=== PATIENT | female | born 1985 | race Caucasian/White ===

== ENCOUNTER 2024-03-14 00:42 | Emergency (ER) | payer OTHER, SELFPAY ==
[2024-03-14 00:42] VITALS: BMI 43.5
[2024-03-14 00:43] VITALS: BP 119/82
[2024-03-14 01:09] LABS: Urine Albumin Negative (Neg - Trace); Urine Bilirubin Negative (Negative); Urine Character Clear (Clear); Urine Color Yellow; Urine Glucose Negative (Negative); Urine Ketone Negative (Negative); Urine Leukocyte Negative (Negative); Urine Nitrite Negative (Negative); Urine Occult Blood 1+ (Negative); Urine Urobilinogen Negative (Neg - 1+)
[2024-03-14 01:27] LABS: HCG, Urine Qualitative Screen Negative
--- NOTE | 2024-03-14 01:32 | ED.GENMED ---
History of Present Illness
General
Chief Complaint: Urinary Symptoms
Source: patient
Exam Limitations: none
Time Seen by Provider: 03/14/24 01:09
Nursing documentation reviewed up to this point in time: agreed with
Travel History
Have you had any contact with someone who has COVID-19?: No
Do you have any symptoms of coronavirus? Fever > 100 degrees, chills, cough, shortness of breath, sore throat, loss of taste or smell, muscle aches, or headache?: No
History of Present Illness
History of Present Illness:
38-year-old female presents emergency department complaining of left flank pain for the past 2 days. No aggravating relieving factors. No dysuria or frequency.
Past History
Past History
ED Past Medical History: None
ED Past Surgical History: None
Social History
Tobacco: Non-smoker
Alcohol: None
Drug: None
Review of Systems
Review of Systems
Allergies reviewed?: Yes
All Other Systems: Not applicable
Constitutional: Reports no symptoms
EENT: Reports no symptoms
Respiratory: Reports no symptoms
Cardiac: Reports no symptoms
ABD/GI: Reports no symptoms
: Reports flank pain; Denies dysuria, frequency or urgency
Musculoskeletal: Reports no symptoms
Skin: Reports no symptoms
Neurological: Reports no symptoms
Endocrine: Reports no symptoms
Hematologic/Lymphatic: Reports no symptoms
Psychiatric: Reports no symptoms
Phy Exam
Physical Exam
Physical Exam:
Physical Exam
General: no apparent distress, not acutely ill
Neck: supple. no meningeal signs. normal posterior pharynx
Heart: s1/s2 regular rate and rhythm, no murmur. equal radial
pulses.
HEENT: Pupils equal round reactive to light, EOMI
Lungs: no acute respiratory distress. clear bilaterally
Abdomen: normal bowel sounds. not tender. Mild left CVAT
Neuro: alert and oriented. no focal neurological deficits cranial nerves II through XII intact
Skin: no rash
Psychiatric: well kept. interactive and cooperative
Extremities: no edema. no calf tenderness. negative homans. good distal pulses
Course
Orders/Labs/Results
Orders:
Orders
03/14/24 00:53
HCG, Urine Qualitative Screen Urgent
Date Specimen was Collected: 03/14/24
Time Specimen was Collected: 00:53
Urinalysis Reflex To Culture Urgent
Date Specimen was Collected: 03/14/24
Time Specimen was Collected: 00:53
Urine Microscopic Reflex Cult Urgent
03/14/24 01:18
Add On- LAB Urgent
Tests Added?: urine hcg
CT Abd/pel Without Iv Or Oral Urgent
Comment:
Reason For Exam: left flank pain, hematuria
03/14/24 02:36
Complete Blood Count/With Diff Urgent
Comprehensive Metabolic Panel Urgent
Abnormal Lab Results
03/14/24
00:53
Ur Occult Blood Reflex 1+ A
(Negative)
Urine RBC 3-6 A /HPF
(0-2)
Urine Bacteria (Reflex) Few A
(Negative)
Vital Signs
Initial and Last Documented VS:
Initial Vital Signs
Temp Pulse Resp BP Pulse Ox
98.0 F 80 18 119/82 97
03/14/24 00:43 03/14/24 00:43 03/14/24 00:43 03/14/24 00:43 03/14/24 00:43
Last Documented Vital Signs
Temp Pulse Resp BP Pulse Ox
98.0 F 80 18 144/89 95
03/14/24 00:43 03/14/24 00:43 03/14/24 00:43 03/14/24 02:19 03/14/24 02:21
MDM/Problems Addressed
Differential Diagnosis Includes:
Left flank pain, UTI, ureteral calculus
MDM/Problems Addressed:
38-year-old female with left flank pain, incidentally found left renal cyst, right atrophic kidney. Patient stable for discharge, will check CBC and CMP to evaluate creatinine. Follow-up with primary care.
*Radiology
Radiology exam reviewed: radiology read reviewed (CT abdomen pelvis shows atrophic right kidney, left renal cyst)
*Pulse Oximetry
Patient hypoxic: no
*EKG
Interpreted by ED Provider?: NA
*Van Owner Operator Interpretation
Rate: Van Owner Operator- N/A
*Critical Care Note
Total Time (30-74mins, 75-104mins- exclusive of procedures): Not Applicable
Patient Management
Social determinants of health affecting care: Living situation and Strong social support
Escalation/DeEscalation of care consider admission/obs:
Admit not indicated
ED Attending Note
-
Portions of this chart may have been created with voice recognition software.� Occasional wrong word or��sound alike� substitutions may have occurred due to the inherent limitations of voice recognition software.
Discharge Plan
Departure
Patient with high blood pressure during this ER visit?: Yes
Condition: Good
Discharge Problem:
Acute left flank pain, Cyst of left kidney, Right renal atrophy
Instructions: Polycystic kidney disease, Flank Pain ED, BLOOD PRESSURE
Prescriptions:
No Action
No Current Medications
0
Interventions
Interventions:
*Risk Screen - Suicide Last Done: 03/14/24 00:43
*General Assessment Last Done: 03/14/24 00:43
*Neglect/Abuse Screening Last Done: 03/14/24 00:43
ED-Female Genitourinary Assessment Last Done: 03/14/24 02:18
Discharge Date and Time
Print Language: PORTUGUESE
[2024-03-14 01:51] LABS: Urine Squamous Cell >30 /LPF (Few)
[2024-03-14 01:52] LABS: Urine Bacteria Few (Negative); Urine White Cell 0-2 /HPF (0-5)
[2024-03-14 02:19] VITALS: BP 144/89
[2024-03-14 03:28] LABS: % Basophils 0.5 % (0-2); % Eosinophils 0.8 % (0-6); % Immature Granulocytes 0.3 % (0-0.5); % Lymphocytes 31.8 % (20.5-51.1); % Monocytes 9.5 % (1.7-9.3); % Neutrophils 57.1 % (42.2-75.2); Absolute Eosinophils 0.1 10^3/uL (0-0.7); Absolute Lymphocytes 2.3 10^3/uL (1.2-3.4); Absolute Monocytes 0.7 10^3/uL (0.1-0.6); Absolute Neutrophils 4.2 10^3/uL (1.4-6.5); Hematocrit 39.5 % (37.0-47.0); Hemoglobin 13.6 g/dL (12.0-16.0); Mean Corp Hgb Conc. 34.4 g/dL (33.0-37.0); Mean Corpuscular Hgb 27.9 pg (27.0-31.0); Mean Corpuscular Volume 80.9 fL (81.0-99.0); Mean Platelet Volume 9.7 fL (7.4-10.4); Nucleated Red Blood Cells % 0 %; Platelet Count 256 10^3/uL (130-400); Red Blood Cell Count 4.88 10^6/uL (4.20-5.40); White Blood Cell Count 7.3 10^3/uL (4.8-10.8)
[2024-03-14 03:54] LABS: ALT (SGPT) 17 U/L (0-35); AST (SGOT) 19 U/L (14-36); Albumin 4.1 g/dl (3.5-5.0); Alkaline Phosphatase 75 U/L (38-126); Blood Urea Nitrogen 20 mg/dl (7-17); Calcium 9.7 mg/dl (8.4-10.2); Carbon Dioxide 23 mmol/L (22-30); Chloride 105 mmol/L (98-107); Estimated Creatinine Clearance > 125 ml/min; Glucose 99 mg/dl (70-99); Potassium 4.2 mmol/L (3.5-5.1); Sodium 137 mmol/L (135-145); Total Bilirubin 0.6 mg/dl (0.2-1.3); Total Protein 7.3 g/dl (6.3-8.2); eGFR > 60.00
[2024-03-14 04:17] VITALS: BP 138/90
== END 2024-03-14 04:25 | disposition home or self-care (01) ==
LOC: EMR 00:42
PROVIDERS: Student in an Organized Health Care Education/Training Program; EMERGENCY PHYSICIAN Emergency Medicine
DX: R10.9 Unspecified abdominal pain (principal); N28.1 Cyst of kidney, acquired; N26.1 Atrophy of kidney (terminal); R03.0 Elevated blood-pressure reading, without diagnosis of hypertension
CPT/HCPCS: 99284; 74176; 80053; 81003; 81015; 81025; 85025